=== PATIENT | female | born 1990 | race African-American/Black ===

== ENCOUNTER → 2023-11-09 | Outpatient (REF) | payer OTHER ==
[~2023-11-09] MED LIST: ADAP0.02 TOP; BUPR-597 PO; CLIN1LOT TOP; DOXY-440 PO; DOXY100T PO; LEXA1TAB PO; MELA3TAB30 PO; NICO21PAT TD; SULF10EM7 TOP; WELLTAB40 PO
== END ==
LOC: M WUC 17:17
PROVIDERS: ATTEND Physician Assistant
DX: R30.0 Dysuria (principal)